=== PATIENT | male | born 1940 | race Caucasian/White ===

== ENCOUNTER 2017-04-08 13:13 | Day surgery (SDC) | payer MEDICARE, BC ==
[~2017-04-08 13:13] MED LIST: Buffered Lidocaine 0.9% SYRIN* 5 ML/SYR SYRINGE INTRADERM ONE; Famotidine IV* 10 MG/ML 2 ML (20 mg) IV ONE; Metoclopramide TAB* 10 MG PO ONE
[2017-04-08] MEDS ORDERED: Famotidine IV* 10 MG/ML 2 ML (20 mg) ONE (13:15)
[2017-04-08] MEDS ORDERED: Metoclopramide TAB* 10 MG ONE (13:15)
[2017-04-08] MEDS ORDERED: Buffered Lidocaine 0.9% SYRIN* 5 ML/SYR SYRINGE ONE (13:15)
[2017-04-08] MEDS ORDERED: Midazolam* 1 MG/ML 5 ML VIAL (5 MG) IV ONE (14:00)
[2017-04-08] MEDS ORDERED: Dexamethasone IV* 4 MG/ML 1 ML (4 MG) IV SLOW PU ONE (15:15)
[2017-04-08] MEDS ORDERED: KETAMINE HCL* 50 MG/ML 10 ML VIAL IV ONE (15:16)
[2017-04-08] MEDS ORDERED: Mivacurium Chloride* 20 MG/10 ML VIAL IV ONE (15:16)
[2017-04-08] MEDS ORDERED: Propofol* 10 MG/ML 20 ML BTL IV PUSH ONE (15:16)
[2017-04-08] MEDS ORDERED: Lidocaine 2% PF * 5 ML VIAL IV ONE (15:16)
[2017-04-08] MEDS ORDERED: fentaNYL* 50 MCG/ML 2 ML VIAL (100 MCG VIAL) IV ONE (15:16)
[2017-04-08] MEDS ORDERED: Ondansetron INJ* 2 MG/ML VIAL IV ONE (15:16)
[2017-04-08] MEDS ORDERED: Ondansetron INJ* 2 MG/ML VIAL IV PRN (16:09)
[2017-04-08] MEDS ORDERED: fentaNYL* 50 MCG/ML 2 ML VIAL (100 MCG VIAL) IV PRN (16:09)
[2017-04-08 18:14] VITALS: BP 147/81
--- NOTE | 2017-04-09 10:30 | PRO ---
BRONCHOSCOPY REPORT: DATE OF PROCEDURE: 04/08/17 PROCEDURE PERFORMED: Bronchoscopy with endobronchial ultrasound-guided fine needle aspiration of mediastinal nodes for lung cancer staging. PREPROCEDURAL DIAGNOSIS: Recently diagnosed adenocarcinoma of right lung after CT- guided biopsy. POSTPROCEDURAL DIAGNOSIS: Benign lymphatic tissue from station R4, L4, and station 7. ANESTHESIA: General anesthesia. ANESTHESIOLOGIST: Dr. Canada. DESCRIPTION OF PROCEDURE: Informed consent was obtained from the patient prior to the procedure after all the risks and benefits were thoroughly explained. The patient was placed supine on the operating room table. The patient was intubated to facilitate general anesthesia for EBUS. Appropriate time-out was agreed on by attending staff prior to the procedure. A flexible Olympus bronchoscope was inserted through ET tube for airway inspection. No endobronchial lesions were noted. All airways were patent and open. ET tube positioning was confirmed to be 2 cm above the level of roger. Bronchoscope was then withdrawn and EBUS bronchoscope was inserted through ET tube. Station L4 was minimally enlarged at 0.5 cm and was accessed through 3 passes. First pass was not adequate. Two other passes revealed lymphatic tissue, no malignant cells were noted. Station R4 was then accessed with 2 passes. Lymphatic tissue was noted on rapid onsite evaluation, no malignant cells were noted. Rest of specimen was placed in CytoLyte. The bronchoscope was then advanced into the right mainstem bronchus and station 7 was accessed with 2 passes. Pass 2 was adequate with benign lymphatic tissue. Hilar nodes were scanned; however, they were not enlarged and could not be biopsied. No other lymph nodes were enlarged in the hilar area in the left or right side. Procedure was then terminated. The patient was extubated and seen in Recovery in optimal condition. [id number]/[facility] #: [id number] [facility]
== END 2017-04-08 18:27 | disposition home or self-care (01) ==
LOC: OR 13:13
PROVIDERS: ATTEND Internal Medicine
DX: C34.91 Malignant neoplasm of unspecified part of right bronchus or lung (principal); I10 Essential (primary) hypertension; G47.33 Obstructive sleep apnea (adult) (pediatric)
CPT/HCPCS: 88172; 88173; 88177; 88305; A9270-GY; J1100; J2250; J2405; J2704; J3010

== ENCOUNTER 2017-04-27 20:56 | Emergency (ER) | payer MEDICARE, BC ==
[2017-04-27] MEDS ORDERED: NS 0.9% 1000 ML* 1,000 ML IV ONE (21:15)
[2017-04-27] MEDS ORDERED: diPHENhydraMINE IV* 50 MG/ML 1 ml VIAL (BENADRYL) ONE (21:27)
[2017-04-27] MEDS ORDERED: methylPREDNISolone 125 MG* 2 ML VIAL ONE (21:27)
[2017-04-27] MEDS ORDERED: Famotidine IV* 10 MG/ML 2 ML (20 mg) ONE (21:27)
[2017-04-27 21:38] LABS: Hematocrit 38 % (42-52); Hemoglobin 12.6 g/dl (14.0-18.0); Mean Corpuscular HGB Conc 33 g/dl (31-36); Mean Corpuscular Hemoglobin 28 pg (27-31); Mean Corpuscular Volume 85 fL (80-94); Mean Platelet Volume 8 um3 (7.4-10.4); Red Blood Count 4.51 10^6/ul (4.0-5.4); Red Cell Distribution Width 17 % (10.5-15); White Blood Count 6.7 10^3/ul (3.5-10.8)
[2017-04-27 21:53] LABS: Albumin 3.4 g/dL (3.2-5.2); BUN/Creatinine Ratio 13.1 (8-20); C Reactive Protein 75.34 mg/L (< 5.00); Calcium 8.4 mg/dL (8.6-10.3); EGFR African American 64.6 (>60); EGFR Non-African American 50.3 (>60); Globulin 2.6 g/dL (2-4); Magnesium 1.8 mg/dL (1.9-2.7); Potassium 3.7 mmol/L (3.5-5.0); Total Bilirubin 0.8 mg/dL (0.2-1.0)
[2017-04-27 21:54] LABS: Troponin I 0.01 ng/mL (<0.04)
[2017-04-27] MEDS ORDERED: Iodixanol* (CONTRAST) 320 MG/ML 100 ML SDV IV ONE (21:57)
[2017-04-27] MEDS ORDERED: LORazepam INJ* 2 MG/ML 1 ML VIAL ONE (22:02)
[2017-04-27] MEDS ORDERED: LORazepam INJ* 2 MG/ML 1 ML VIAL IV PUSH ONE (22:02)
--- NOTE | 2017-04-27 22:05 | RAD ---
Indication: Shortness of breath post RIGHT lower lung surgery. Comparison: April 03, 2017 PET/CT. March 19, 2017 chest radiograph. Technique: Upright AP 2140 hours Report: Extensive RIGHT chest wall and neck subcutaneous emphysema. Small RIGHT pleural effusion and moderate pneumothorax post partial pneumonectomy. Mild rightward shift of the mediastinum secondary to RIGHT hemithorax volume loss. Negative for cardiomegaly. Unremarkable central pulmonary vasculature and mediastinal contours accounting for portable AP technique. IMPRESSION: Small RIGHT pleural effusion and moderate pneumothorax post partial pneumonectomy. Mild rightward shift of the mediastinum secondary to RIGHT hemithorax volume loss. Extensive subcutaneous emphysema.
[2017-04-27 22:38] LABS: Urine Bacteria Absent (Absent); Urine Bilirubin Negative (Negative); Urine Glucose Negative (Negative); Urine Nitrite Negative (Negative)
[2017-04-27] MEDS ORDERED: Lidocaine 1% INJ* 10 MG/ML 30 ML SDV ONE (23:25)
[2017-04-28] MEDS ORDERED: HYDROmorphone INJ* 2 MG/ML CARPUJECT SYRINGE ONE (00:08)
[2017-04-28] MEDS ORDERED: HYDROmorphone INJ* 1 MG/ML CARPUJECT SYRINGE IV SLOW PU ONE (00:15)
--- NOTE | 2017-04-28 00:59 | ED ---
Kathi Pisano Edward, scribed for Nessa Desouza MD on 04/27/17 at 2114 . Allergic Reaction/Systemic - HPI Summary HPI Summary: 76 y/o male ANGELITO c/o sudden onset throat swelling and difficulty breathing starting at around 20:00 tonight. The symptoms are not aggravated or alleviated by anything. S/P partial lobectomy laparoscopically @ R lower lung at [place] on 04/23/17 for cancerous nodule and was released from the hospital 2 days ago. Pt was also intubated and the chest tube was pulled two days ago. Associated sx : hoarse voice. Denies CP. Pt states his voice does not sound normal. He states his throat feels closed and his breathing through his mouth is difficult. Pt states he can breathe normally through his nose. Per EMS, the pt was speaking normally on O2 in the ambulance. PMHx nodule at his R lower lung, ( adenocarcinoma), rheumatoid arthritis. New Medications - pantoprazole 40 mg oral , miralax 17 g orally 1x a day, Senna oral tablet 1 tab 2 times a day, Lovenox. Pt did not take his dose of Lovenox tonight. Pt notes that his right chest wall has been swelling, and he also notes crackling when he coughs in his right lower abd wall. 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 - , EMS, Medical Records Onset/Duration: Sudden Onset Timing: Constant Severity Initially: Moderate Severity Currently: Severe Pain Intensity: 0 Pain Scale Used: 0-10 Numeric Location: Discrete @ - throat Character: Swelling Aggravating Factor(s): Nothing Alleviating Factor(s): Nothing Associated Signs And Symptoms: Positive: Difficulty Breathing, Hoarseness, Throat Tightening, Other: - "crackling", rattling feeling in his abdominal wall after coughing - Related Hx Possible Reaction To: Other: - s/p pneumonectomy 04/23/17 - Allergies/Home Medications Allergies/Adverse Reactions: Allergies Allergy/AdvReac Type Severity Reaction Status Date / Time No Known Allergies Allergy Verified 04/08/17 13:23 PMH/Surg Hx/FS Hx/Imm Hx Previously Healthy: No Endocrine/Hematology History: Denies: Hx Diabetes Cardiovascular History: Reports: Hx Hypercholesterolemia, Hx Hypertension - CONTROL WITH MEDS, Other Cardiovascular Problems/Disorders - Dr. Solano heard a small valve leakage-not worried-age related Denies: Hx Pacemaker/ICD Respiratory History: Reports: Hx Sleep Apnea Denies: Hx Chronic Obstructive Pulmonary Disease (COPD) GI History: Reports: Other GI Disorders - TAKING OMEPRAZOLE R/T SOME PREVIOUS MEDS HE WAS ON History: Reports: Other Problems/Disorders - nocturia, ED Denies: Hx Dialysis, Hx Renal Disease Musculoskeletal History: Reports: Hx Rheumatoid Arthritis Sensory History: Reports: Hx Cataracts - HX OF Denies: Hx Contacts or Glasses, Hx Hearing Aid Opthamlomology History: Reports: Hx Cataracts - HX OF Denies: Hx Contacts or Glasses Neurological History: Reports: Other Neuro Impairments/Disorders - extreme claustrophobic Psychiatric History: Reports: Hx Anxiety - extreme claustrophobic Denies: Hx Panic Disorder - Cancer History Cancer Type, 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 ARTHROSCOPIC SURGERY BILATERAL KNEES, [facility]. POLYPS REMOVED FROM VOCAL CORDS, [facility]. 1998 SEPTOPLASTY, [facility]. 2001 CYSTOSCOPY, TURBT, [facility]. 04/23/17 right partial pneumonectomy [facility]. 2001 LEFT FOOT BUN[facility]ECTOMY, [facility]. 2007 REPAIR OF HAMMER TOE, [facility]. 2008 BILATERAL CATARACT EXTRACTION WITH IOL IMPLANTS, [place] 08/2009 RIGHT TOTAL HIP ARTHROPLASTY(ANTERIOR APPROACH, BIOMET), [place], [place] [facility]. 07/2010 RIGHT TOTAL KNEE REPLACEMENT, (SALAZAR, NEXGEN), [place], [place]. 2011 [facility] 2013 [facility]. 09/2013 BILATERAL ENDOSCOPIC CARPAL TUNNEL RELEASE AND OPEN CUBITAL TUNNEL RELEASE, [place], [place]. 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 10/2014 FLEXOR TENOTOMY, [place], [place]. 03/2015 POSTERIOR CAPSULE OPACIFICATION AND YAG LASER CAPSULOTOMY, [place] 04/2016 left total hip replacement. left knee 08/2016 in [facility] Hx Anesthesia Reactions: No Infectious Disease History: No Infectious Disease History: Denies: Traveled Outside the in Last 30 Days - Family History Known Family History: Positive: Hypertension - Social History Lives: With Family Alcohol Use: None Hx Substance Use: No Substance Use Type: Reports: None Hx Tobacco Use: No Smoking Status (MU): Never Smoked Tobacco Review of Systems Constitutional: Negative Eyes: Negative ENT: Other - hoarse voice, throat swelling Cardiovascular: Negative Respiratory: Other - difficulty breathing Gastrointestinal: Negative Genitourinary: Negative Musculoskeletal: Negative Skin: Negative Neurological: Negative Psychological: Normal All Other Systems Reviewed And Are Negative: Yes Physical Exam - Summary Physical Exam Summary: Appearance: Well-appearing, no pain distress, Well-nourished. High-pitched voice. No stridor. Skin: Warm, color reflects adequate perfusion. No hives Head: Normal Head/Face Eyes: Conjunctiva clear ENT: Pharynx clear, no uvula edema. Neck: Supple, Feels sensation that throat is closing off. No definite neck swelling. No crepitus. Trachea midline. NOTE: later in course, crepitus is palpated in ant neck Respiratory: Respirations are unlabored at 17 and his O2 sat is 100 on room air. Decreased BS on right, coarse rhonchi. No wheezes. No stridor. Cardio: RRR, No murmur, pulses normal, brisk capillary refill Abdomen: soft, nontender. Ecchymosis @ RLQ of ABD and recent surgical site at R lower lung with crepitus. No drainage from surgical site. Bowel sounds: present Musculoskeletal: Strength Intact/ ROM intact. No edema Neuro: Alert, muscle tone normal, facial symmetry, speech normal, sensory/motor intact Triage Information Reviewed: Yes Vital Signs On Initial Exam: Initial Vitals Temp Pulse Resp BP Pulse Ox 98.3 F 68 16 185/65 98 04/27/17 21:12 04/27/17 21:12 04/27/17 21:12 04/27/17 21:12 04/27/17 21:12 Vital Signs Reviewed: Yes Diagnostics - Vital Signs Vital Signs Temp Pulse Resp BP Pulse Ox 04/27/17 22:05 18 04/27/17 21:12 98.3 F 68 16 185/65 98 - Laboratory Lab Results: Lab Results 04/27/17 04/27/17 04/27/17 Range/Units 21:30 21:30 21:30 WBC 6.7 (3.5-10.8) 10^3/ul RBC 4.51 (4.0-5.4) 10^6/ul Hgb 12.6 L (14.0-18.0) g/dl Hct 38 L (42-52) % MCV 85 (80-94) fL MCH 28 (27-31) pg MCHC 33 (31-36) g/dl RDW 17 H (10.5-15) % Plt Count 143 L (150-450) 10^3/ul MPV 8 (7.4-10.4) um3 Neut % (Auto) 73.3 (38-83) % Lymph % (Auto) 17.4 L (25-47) % Bland % (Auto) 6.5 (1-9) % Eos % (Auto) 2.4 (0-6) % Baso % (Auto) 0.4 (0-2) % Absolute Neuts (auto) 4.9 (1.5-7.7) 10^3/ul Absolute Lymphs (auto) 1.2 (1.0-4.8) 10^3/ul Absolute Monos (auto) 0.4 (0-0.8) 10^3/ul Absolute Eos (auto) 0.2 (0-0.6) 10^3/ul Absolute Basos (auto) 0 (0-0.2) 10^3/ul Absolute Nucleated RBC 0 10^3/ul Nucleated RBC % 0 INR (Anticoag Therapy) 1.10 (0.89-1.11) Sodium 136 (133-145) mmol/L Potassium 3.7 (3.5-5.0) mmol/L Chloride 105 (101-111) mmol/L Carbon Dioxide 27 (22-32) mmol/L Anion Gap 4 (2-11) mmol/L BUN 18 (6-24) mg/dL Creatinine 1.37 H (0.67-1.17) mg/dL Est GFR ( Amer) 64.6 (>60) Est GFR (Non-Af Amer) 50.3 (>60) BUN/Creatinine Ratio 13.1 (8-20) Glucose 106 H (70-100) mg/dL Lactic Acid (0.5-2.0) mmol/L Calcium 8.4 L (8.6-10.3) mg/dL Magnesium 1.8 L (1.9-2.7) mg/dL Total Bilirubin 0.80 (0.2-1.0) mg/dL AST 30 (13-39) U/L ALT 25 (7-52) U/L Alkaline Phosphatase 39 (34-104) U/L Troponin I 0.01 (<0.04) ng/mL C-Reactive Protein 75.34 H (< 5.00) mg/L Total Protein 6.0 L (6.4-8.9) g/dL Albumin 3.4 (3.2-5.2) g/dL Globulin 2.6 (2-4) g/dL Albumin/Globulin Ratio 1.3 (1-3) Urine Color Urine Appearance Urine pH (5-9) Ur Specific Yarnell (1.010-1.030) Urine Protein (Negative) Urine Ketones (Negative) Urine Blood (Negative) Urine Nitrate (Negative) Urine Bilirubin (Negative) Urine Urobilinogen (Negative) Ur Leukocyte Esterase (Negative) Urine WBC (Auto) (Absent) Urine RBC (Auto) (Absent) Urine Bacteria (Absent) Urine Glucose (Negative) 04/27/17 04/27/17 Range/Units 21:30 22:26 WBC (3.5-10.8) 10^3/ul RBC (4.0-5.4) 10^6/ul Hgb (14.0-18.0) g/dl Hct (42-52) % MCV (80-94) fL MCH (27-31) pg MCHC (31-36) g/dl RDW (10.5-15) % Plt Count (150-450) 10^3/ul MPV (7.4-10.4) um3 Neut % (Auto) (38-83) % Lymph % (Auto) (25-47) % Bland % (Auto) (1-9) % Eos % (Auto) (0-6) % Baso % (Auto) (0-2) % Absolute Neuts (auto) (1.5-7.7) 10^3/ul Absolute Lymphs (auto) (1.0-4.8) 10^3/ul Absolute Monos (auto) (0-0.8) 10^3/ul Absolute Eos (auto) (0-0.6) 10^3/ul Absolute Basos (auto) (0-0.2) 10^3/ul Absolute Nucleated RBC 10^3/ul Nucleated RBC % INR (Anticoag Therapy) (0.89-1.11) Sodium (133-145) mmol/L Potassium (3.5-5.0) mmol/L Chloride (101-111) mmol/L Carbon Dioxide (22-32) mmol/L Anion Gap (2-11) mmol/L BUN (6-24) mg/dL Creatinine (0.67-1.17) mg/dL Est GFR ( Amer) (>60) Est GFR (Non-Af Amer) (>60) BUN/Creatinine Ratio (8-20) Glucose (70-100) mg/dL Lactic Acid 0.7 (0.5-2.0) mmol/L Calcium (8.6-10.3) mg/dL Magnesium (1.9-2.7) mg/dL Total Bilirubin (0.2-1.0) mg/dL AST (13-39) U/L ALT (7-52) U/L Alkaline Phosphatase (34-104) U/L Troponin I (<0.04) ng/mL C-Reactive Protein (< 5.00) mg/L Total Protein (6.4-8.9) g/dL Albumin (3.2-5.2) g/dL Globulin (2-4) g/dL Albumin/Globulin Ratio (1-3) Urine Color Straw Urine Appearance Clear Urine pH 5.0 (5-9) Ur Specific Yarnell 1.009 L (1.010-1.030) Urine Protein Negative (Negative) Urine Ketones Negative (Negative) Urine Blood Negative (Negative) Urine Nitrate Negative (Negative) Urine Bilirubin Negative (Negative) Urine Urobilinogen Negative (Negative) Ur Leukocyte Esterase Trace H (Negative) Urine WBC (Auto) 2+(11-20/hpf) H (Absent) Urine RBC (Auto) Trace(0-2/hpf) (Absent) Urine Bacteria Absent (Absent) Urine Glucose Negative (Negative) Result Diagrams: 04/27/17 21:30 04/27/17 21:30 Lab Statement: Any lab studies that have been ordered have been reviewed, and results considered in the medical decision making process. - Radiology CXR Xray Interpretation: Positive (See Comments) - Small RIGHT pleural effusion and moderate pneumothorax post partial pneumonectomy. Mild rightward shift of the mediastinum secondary to RIGHT hemithorax volume loss. Extensive subcutaneous emphysema. Radiology Interpretation Completed By: Radiologist - Additional Comments Diagnostic Additional Comments: EKG - 22: 02 - SR @ 70 BPM. NORMAL AV, IV, QTC and axis. No acute changes. No changes from prior EKG Re-Evaluation - Re-Evaluation 1 Re-Evaluation Time: 21:25 Change: Unchanged 2 Re-Evaluation Time: 21:34 Change: Unchanged Comment: Informed pt that Dr. Fam will see the pt 3 Re-Evaluation Time: 22:00 Change: Worse Comment: Pt developed crepitus at this time 4 Re-Evaluation Time: 22:23 Change: Unchanged Comment: Will discuss with surgery, Dr. Hernandez, general surgeon telephone interviewer. Fifth Eval Re-Evaluation Time: 00:35 Change: Improved Comment: chest tube placed by Dr. Hernandez without difficulty. Large gush of air, some blood, but there is no continued air leak. Allergic Reaction Course/Dx - Course Course Of Treatment: Initially pt was treated as possible anaphylaxis with Benadryl 50mg IV, Solumedrol 125mg IV, Famotidine 40mg IV. Then pt pointed out the air gurgling in his lateral abdominal wall when he coughed. Subcutaneous emphysema noted, extensively at this point, including at his neck. Pursued further eval of his airway with ENT, then consulted surgery to place chest tube prior to transfer to [place] for definitive care of the air leak post op. Assessment/Plan: 76 y/o male BIBA c/o sudden onset throat swelling and difficulty breathing earlier tonight. The symptoms are not aggravated or alleviated by anything. Sx lower R lung partial removed at [place] on 04/23/17 for cancer and was released from the hospital 2 days ago. Pt was also intubated. Associated sx: hoarse voice. Denies CP. Pt states his voice does not sound normal. He states his throat feels closed and his breathing through his mouth is difficult. Pt states he can breathe normally through his nose. Per EMS , the pt was speaking normally on O2 in the ambulance. PMHx nodule at his R lower lung, arthritis. Dr. Solano was made aware of the pt at 21:11. Spoke with Dr. Fam at 21:30. Dr. Fam will come to the ED to see the pt. In the ED, Dr. Cristel examined pt's airway and vocal cords and found no swelling, and cords move normally. CXR SHOWS Small RIGHT pleural effusion and moderate pneumothorax post partial pneumonectomy. Mild rightward shift of the mediastinum secondary to RIGHT hemithorax volume loss. Extensive subcutaneous emphysema. Dr. Fam recommends we call surgery. Discussed with Dr. Hernandez @ 22:24 who recommends we call [facility] Tried the pt's surgeon, Dr. Acosta, but could not reach him through his cell phone number. Called [place] 's main line at 22:40. EKG - 22: 02 - SR @ 70 BPM. NORMAL AV, IV, QTC and axis. No acute changes. No changes from prior EKG. Spoke with Dr. Gil of [place] at 23:17, who will call thoracic surgery and call back. Spoke with Dr. Cook, who accepts pt for transfer to [place] at 23:25. Dr. Cook wants the chest tube placed for transfer. Dr. Hernandez obtained CT chest prior to placing chest tube. Placed chest tube without difficulty. 0050: discussed CT reading with Dr. Oro, radiology, states leak is probably from bronchus but is difficult to assess. - Diagnoses Differential Diagnosis/HQI/PQRI: Positive: Airway Obstruction, Anaphylaxis, Angioedema, Bronchospasm, Other - PTX, surgical complication Provider Diagnoses: Pneumothorax on right, Subcutaneous emphysema associated with surgical procedure - Provider Notifications Discussed Care Of Patient With: Roopa Solano Time Discussed With Above Provider: 21:11 Instructed by Provider To: Transfer - Dr. Solano made aware of pt in ED; Dr. Fam ENT, Dr. Hernandez general surgery; Dr. Cook-thoracic surgeon at [place] accepts pt. Reason For Transfer: Specialty or service not available at [facility]. - Critical Care Time Critical Care Time: 30-74 min - 45 minutes Discharge - Discharge Plan Condition: Stable Disposition: TRANS HIGHER LVL OF CARE FAC The documentation as recorded by the Kathi wolfe Edward accurately reflects the service I personally performed and the decisions made by , Nessa Desouza MD.
[2017-04-28 01:00] VITALS: BP 159/72
--- NOTE | 2017-04-28 07:52 | RAD ---
HISTORY: Status post chest tube placement COMPARISONS: April 27, 2017 at 8:[address] of the chest dated April 27, 2017 VIEWS: 1: frontal portable view of the chest at 1:01 AM FINDINGS: LINES AND TUBES: A right-sided chest tube is noted. CARDIOMEDIASTINAL SILHOUETTE: There is pneumomediastinum, similar to the previous examination. PLEURA: There has been interval decrease in the size of right apical pneumothorax. There is no appreciable residual. LUNG PARENCHYMA: The lungs are clear. ABDOMEN: The upper abdomen is clear. There is no subphrenic gas. BONES AND SOFT TISSUES: There is extensive subcutaneous emphysema. IMPRESSION: 1. NO APPRECIABLE RESIDUAL PNEUMOTHORAX. 2. PNEUMOMEDIASTINUM. 3. SUBCUTANEOUS EMPHYSEMA.
--- NOTE | 2017-04-28 07:57 | RAD ---
INDICATION: Evaluate pneumothorax and subcutaneous emphysema in the patient with difficulty breathing. COMPARISON: Most recent CT of the chest is dated March 25, 2017 TECHNIQUE: Axial source images of the chest were acquired without intravenous contrast from just above the lung apices to the base of the diaphragm. Coronal and sagittal reconstructed images were acquired. FINDINGS: There is a small right-sided pneumothorax with a small pleural effusion in the dependent portion of the thorax.. There is pneumomediastinum with air insinuating and surrounding the mediastinal structures. Outside the chest wall there is subcutaneous emphysema tracking along the visualized right greater than left neck, right chest and along the right back. Relative to the prior CT examination, the patient appears to be status post right lower lobectomy. Otherwise the lungs are grossly clear. There is no gross mediastinal lymphadenopathy. Calcified atherosclerosis is seen at the coronary arteries aortic ring and arch of the aorta. Degenerative changes of the thoracic spine includes loss of intervertebral disc height. IMPRESSION: Right-sided hydropneumothorax with widespread mediastinal gas and subcutaneous emphysema overlying the visualized bilateral neck and the subcutaneous soft tissue of the right hemithorax. The patient appears to be status post right lower lobectomy relative to the 9617 CT of the chest.
--- NOTE | 2017-04-28 14:12 | CONS ---
CC: Dr. Solano; Dr. Cedillo; Dr. Lorraine Diez; [facility] * CONSULTATION AND PROCEDURE NOTE: DATE OF CONSULT: 04/27/17 HISTORY OF PRESENT ILLNESS: I was contacted by the emergency room staff to evaluate Mr. Zaragoza, a 76-year-old gentleman, who is postop day #4 from a video - assisted right lower lobectomy for adenocarcinoma. Pathology is pending. The patient was discharged from [facility] on Thursday postoperative day #2 after removal of chest tube, not sure if he underwent a chest x-ray post removal of the chest tube. He stayed the night in [place] and returned home today. The patient was doing well until he noted that his neck was swollen, presented to the emergency room with complaints of hoarseness and swollen neck. He was noted to have crepitus on the neck and a chest x-ray that showed pneumothorax. I was contacted for evaluation. I asked the ER physicians to contact the patient's surgeon. The thoracic group recommended chest tube placement and transfer to their service. They also recommended possible need for chest CT prior to placement of the chest tube. I did not have this conversation with them. This was translated to me from the emergency room physicians. The patient is complaining of right-sided chest pain and shortness of breath. No other complaints. MEDICATIONS: He has been using Lovenox 40 mg daily. REVIEW OF SYSTEMS: No fevers, no chills. Shortness of breath as described. Ecchymosis along the right flank. No dysuria. PHYSICAL EXAM: The patient is afebrile. Vital signs stable. O2 sat 98% on oxygen mask, respirations in the low 20s. Alert and oriented x3. Answers to questions appropriately. Much of the history is obtained through the ; however, no evidence of labored breathing. Trachea is midline. Neck is swollen with crepitus throughout right side more than the left. Lungs have decreased breath sounds on the right. Healing minithoracotomy-type incision on the right and chest tube removal site which also shows good healing. Wide ecchymosis along the subcutaneous area extending down to the hip on the right, minimally tender. Additional crepitus noted. Left lung field clear. Abdomen: Soft and nontender. DIAGNOSTIC STUDIES: Chest x-ray shows a pneumothorax, mostly at the apex with subcutaneous emphysema. We do not see any lateral pneumothorax on the x-ray and therefore, recommended chest CT as was considered by the thoracic surgeons. This was confirmed with noncontrast and was reviewed. Again, it shows pneumothorax apically and some in the base with fluid. It shows moderate pneumomediastinum as well and extensive emphysema. IMPRESSION AND PLAN: Hydropneumothorax status post right lower lobectomy. Differential diagnosis includes status post chest tube removal on Thursday with pneumothorax but strong concern for bronchopleural fistula or staple line leak. I agree and recommend chest tube placement. I outlined the details of the procedure with the patient and the patient's going over the risks, benefits , and alternatives. We spoke of possible complications, which included but not limited to bleeding, infection, need for additional procedures, possibility of not being able to successfully place tube. Consent was signed. PROCEDURE NOTE: In the emergency room, the patient was prepped and draped sterilely. With his right arm over his head, the 4th intercostal space was identified and injection of lidocaine along the site was performed and incision made and this was deepened down to the muscle. The subcutaneous area was released and we were able to bluntly dissect into the pleural space. A gush of air was encountered. Finger dissection was done and we could clear up the space in the pleura. This was smooth and intact, but I could only get the tip of my finger in through the extended subcutaneous space. A 28-[place] soft chest tube was then inserted and directed apically and then sutured to the skin with 0 silk sutures. It was connected to the Pleur-evac. Sterile dressing was applied. After observing this, I noted that there was no air leak into the chest tube. There was some frothy blood into the chest tube itself, but we were unable to identify air leak in the air leak window of the Pleur-evac. So, the chest tube blood appeared not to clot, but my concern was that there may be clot at the tip of the tube causing inability to have an air leak identified. This could have also represented no additional air in the cavity that the tube was in. We will get a chest x-ray postprocedure and look towards transfer to a tertiary center where the chest tube will be managed. [id number]/[facility] #: [id number] [facility]
--- NOTE | 2017-04-30 08:43 | PN ---
Progress Note - Progress Note Date of Service: 04/30/17 Note: Patient urine culture grew Enterococcus faecalis 50-75,000. Patient was transferred to [facility] so no further action needed at this time.
== END 2017-04-28 01:16 | disposition short-term general hospital (02) ==
LOC: ED 20:56
DX: J93.9 Pneumothorax, unspecified (principal); T81.82XA Emphysema (subcutaneous) resulting from a procedure, initial encounter; R06.02 Shortness of breath
CPT/HCPCS: 36415; 71010; 71250; 80053; 81003; 81015; 83605; 83735; 84484; 85025; 85610; 86140; 87077; 87086; 87186; 93005; 96374; 96375; 99285; J1170; J1200; J2001; J2060; J2930

== ENCOUNTER 2017-05-16 10:05 | Emergency (ER) | payer MEDICARE, BC ==
--- NOTE | 2017-05-16 11:12 | RAD ---
HISTORY: Shortness of breath April 27, 2017 COMPARISONS: None VIEWS: 2: Frontal and lateral views of the chest. FINDINGS: CARDIOMEDIASTINAL SILHOUETTE: The cardiomediastinal silhouette is normal. MJ: The mj are normal. PLEURA: The costophrenic angles are sharp. No pleural abnormalities are noted. LUNG PARENCHYMA: The lungs are clear. There is volume loss on the right ABDOMEN: The upper abdomen is clear. There is no subphrenic gas. BONES AND SOFT TISSUES: No bone or soft tissue abnormalities are noted. OTHER: There has been interval resolution of the right-sided chest tube and the subcutaneous emphysema. IMPRESSION: NO ACTIVE CARDIOPULMONARY DISEASE.
[2017-05-16 11:37] LABS: Hematocrit 38 % (42-52); Hemoglobin 12.1 g/dl (14.0-18.0); Mean Corpuscular HGB Conc 32 g/dl (31-36); Mean Corpuscular Hemoglobin 27 pg (27-31); Mean Corpuscular Volume 85 fL (80-94); Mean Platelet Volume 9 um3 (7.4-10.4); Red Blood Count 4.47 10^6/ul (4.0-5.4); Red Cell Distribution Width 17 % (10.5-15); White Blood Count 13.2 10^3/ul (3.5-10.8)
[2017-05-16 11:49] LABS: Albumin 3.2 g/dL (3.2-5.2); BUN/Creatinine Ratio 20.8 (8-20); C Reactive Protein 19.1 mg/L (< 5.00); Calcium 8.7 mg/dL (8.6-10.3); EGFR African American 68.7 (>60); EGFR Non-African American 53.4 (>60); Globulin 3.2 g/dL (2-4); Potassium 4.4 mmol/L (3.5-5.0); Total Bilirubin 0.6 mg/dL (0.2-1.0); Total Protein 6.4 g/dL (6.4-8.9)
[2017-05-16 14:28] LABS: Urine Bacteria Absent (Absent); Urine Bilirubin Negative (Negative); Urine Glucose Negative (Negative); Urine Nitrite Negative (Negative)
--- NOTE | 2017-05-16 14:41 | RAD ---
HISTORY: Swelling of right side of upper back COMPARISONS: CT dated April 27, 2017 TECHNIQUE: Multiple transverse and longitudinal ultrasound images were obtained using grayscale and color Doppler imaging FINDINGS: There are 2 complex fluid collections along the right lateral chest, measuring 10.6 x 10.1 x 4.5 cm in size and 6.6 x 6 x 4.5 cm in size respectively. There is no appreciable increased vascularity. IMPRESSION: COMPLEX FLUID COLLECTIONS ALONG THE RIGHT LATERAL CHEST SUGGESTIVE OF HEMATOMAS DESCRIBED ABOVE
[2017-05-16 16:59] VITALS: BP 134/89
--- NOTE | 2017-05-16 18:52 | ED ---
Kathi Pisano Edward, scribed for Oleksandr Farrar MD on 05/16/17 at 1035 . Shortness of Breath - HPI Summary HPI Summary: 76 y/o male presents to the ED c/o sudden onset SOB and lightheadedness this morning after getting out of bed. Pt states this is the first time he has experienced these symptoms s/p lobectomy on 04/23/17. Pt also c/o back pain and a region of swelling in the back on the R side. Pt denies any pain at this time. Associated sx: pale, fatigue, decreased appetite. Sx partial lobectomy laparoscopically @ [facility] lung at [facility] on 04/23/17 for cancerous nodule. Pt was released from the hospital ([facility]) on 04/25/17. Pt was seen in the ED on and was sent back to [facility] and had a pigtail and tube placed. Pt is currently on Lovenox BID. Dr. Cedillo saw the pt two days ago. Pt's doctor at [facility] was Dr. Juan Acosta. - History of Current Complaint Chief Complaint: EDShortnessOfBreath Time Seen by Provider: 05/16/17 10:18 Hx Obtained From: Patient Onset/Duration: Sudden Onset Dyspnea At: Rest Aggrevating Factors: Nothing Alleviating Factors: Nothing - Allergy/Home Medications Allergies/Adverse Reactions: Allergies Allergy/AdvReac Type Severity Reaction Status Date / Time No Known Allergies Allergy Verified 04/08/17 13:23 Home Medications: Home Medications Albuterol inh POWDER (NF) [Proair Respiclick] 180 mcg INH QID 05/16/17 [History Confirmed 05/16/17] Maxrnlh-Mbtothypz-Hsbc [Calcium & Magnesium + Zin 334-134-5 mg] 1 tab PO DAILY 05/16/17 [History Confirmed 05/16/17] Cholecalciferol [Vitamin D3] 2,000 unit PO DAILY 05/16/17 [History Confirmed ] Enoxaparin(*) [Lovenox(*)] 80 mg SUBCUT Q12HR 05/16/17 [History Confirmed ] Folic Acid 1 mg PO DAILY 05/16/17 [History Confirmed 05/16/17] Gabapentin TAB(NF) 100 mg PO BID 05/16/17 [History Confirmed 05/16/17] Hydroxychloroquine TAB* [Plaquenil TAB*] 200 mg PO BID 05/16/17 [History Confirmed 05/16/17] Lactobacillus [Probiotic] 1 cap PO DAILY 05/16/17 [History Confirmed 05/16/17] Melatonin 10 mg PO BEDTIME 05/16/17 [History Confirmed 05/16/17] Metronidazole [Flagyl 500 MG TAB] 500 mg PO TID 05/16/17 [History Confirmed ] Multiple Vitamin [Multi Vitamin] 1 tab PO DAILY 05/16/17 [History Confirmed ] Bunch-3 Fatty Acids [Fish Oil] 1,200 mg PO DAILY 05/16/17 [History Confirmed ] Pantoprazole Sodium [Protonix] 40 mg PO DAILY 05/16/17 [History Confirmed ] Simvastatin [Zocor 5 MG-] 20 mg PO BEDTIME 05/16/17 [History Confirmed 05/16/17] Vitamin E [Natural Vitamin E] 400 unit PO DAILY 05/16/17 [History Confirmed ] Zolpidem Tartrate [Ambien] 10 mg PO BEDTIME PRN MDD 1 05/16/17 [History Confirmed 05/16/17] predniSONE TAB* [Deltasone TAB*] 1 mg PO BID 05/16/17 [History Confirmed ] PMH/Surg Hx/FS Hx/Imm Hx Previously Healthy: No Endocrine/Hematology History: Denies: Hx Diabetes Cardiovascular History: Reports: Hx Hypercholesterolemia, Hx Hypertension - CONTROL WITH MEDS, Other Cardiovascular Problems/Disorders - Dr. Solano heard a small valve leakage-not worried-age related Denies: Hx Pacemaker/ICD Respiratory History: Reports: Hx Sleep Apnea Denies: Hx Chronic Obstructive Pulmonary Disease (COPD) GI History: Reports: Other GI Disorders - TAKING OMEPRAZOLE R/T SOME PREVIOUS MEDS HE WAS ON History: Reports: Other Problems/Disorders - nocturia, ED Denies: Hx Dialysis, Hx Renal Disease Musculoskeletal History: Reports: Hx Arthritis - Rheumatoid, Hx Rheumatoid Arthritis Sensory History: Reports: Hx Cataracts - HX OF Denies: Hx Contacts or Glasses, Hx Hearing Aid Opthamlomology History: Reports: Hx Cataracts - HX OF Denies: Hx Contacts or Glasses Neurological History: Reports: Other Neuro Impairments/Disorders - extreme claustrophobic Psychiatric History: Reports: Hx Anxiety - extreme claustrophobic Denies: Hx Panic Disorder - Cancer History Cancer Type, 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 [place] [facility] VOCAL CORDS[place] [facility] [facility] 2000 CYSTOSCOPY, [place], [facility]. 04/23/17 right partial pneumonectomy [facility]. 2001 LEFT FOOT [facility], [facility]. 2007 REPA[facility] OF [facility], [facility]. 2008 BILATERAL CATARACT EXTRACTION WITH IOL IMPLANTS, [place]. 08/2009 RIGHT TOTAL HIP ARTHROPLASTY(ANTERIOR APPROACH, BIOMET), [place], [place]. 2009 MOHS SURGERY ON NOSE, [facility]. 07/2010 RIGHT TOTAL KNEE REPLACEMENT, (SALAZAR, NEXGEN), [place] 2011 MOHS SURGERY ON RIGHT EAR, [place]. 2013 MOHS SURGERY LEFT SIDE OF FACE, [place]. 09/2013 BILATERAL ENDOSCOPIC CARPAL TUNNEL RELEASE AND OPEN CUBITAL TUNNEL RELEASE, [place]. 11/2013 MELANOMA REMOVED RIGHT SHOULDER, [facility]. 10/2014 FLEXOR TENOTOMY, [place], [place]. 03/2015 POSTERIOR CAPSULE OPACIFICATION AND YAG LASER CAPSULOTOMY, [place]. 04/2016 left total hip replacement. left knee 08/2016 in [facility] Hx Anesthesia Reactions: No Infectious Disease History: No Infectious Disease History: Denies: Traveled Outside the in Last 30 Days - Family History Known Family History: Positive: Hypertension - Social History Alcohol Use: None Hx Substance Use: No Substance Use Type: Reports: None Hx Tobacco Use: No Smoking Status (MU): Never Smoked Tobacco Review of Systems Positive: Fatigue, Other - decreased appetite Eyes: Negative ENT: Negative Cardiovascular: Negative Positive: Shortness Of Breath Gastrointestinal: Negative Genitourinary: Negative Musculoskeletal: Negative Skin: Other - pale Neurological: Other - lightheadedness Psychological: Normal All Other Systems Reviewed And Are Negative: Yes Physical Exam - Summary Physical Exam Summary: VITAL SIGNS: Reviewed. GENERAL: ~Patient is a well-developed and nourished male who is lying comfortable in the stretcher. ~Patient is not in any acute respiratory distress. HEAD AND FACE: No signs of trauma. ~No ecchymosis, hematomas or skull depressions. No sinus tenderness. EYES: PERRLA, EOMI x 2, No injected conjunctiva, no nystagmus. EARS: Hearing grossly intact. Ear canals and tympanic membranes are within normal limits. MOUTH: Oropharynx within normal limits. NECK: Supple, trachea is midline, no adenopathy, no JVD, no carotid bruit, no c- spine tenderness, neck with full ROM. CHEST: Symmetric, no tenderness at palpation LUNGS: Decreased breath sounds in the R lung. Normal L lung sounds. CVS: Regular rate and rhythm, S1 and S2 present, no murmurs or gallops appreciated. ABDOMEN: Soft, non-tender. No signs of distention. No rebound no guarding, and no masses palpated. Bowel sounds are normal. BACK: Swelling in R upper and middle back, around the area where he had a pigtail. EXTREMITIES: FROM in all major joints, no edema, no cyanosis or clubbing. NEURO: Alert and oriented x 3. No acute neurological deficits. Speech is normal and follows commands. SKIN: Dry and warm Triage Information Reviewed: Yes Vital Signs On Initial Exam: Initial Vitals Temp Pulse Resp BP Pulse Ox 98.2 F 90 20 137/66 100 05/16/17 10:08 05/16/17 10:08 05/16/17 10:08 05/16/17 10:08 05/16/17 10:08 Vital Signs Reviewed: Yes Diagnostics - Vital Signs Vital Signs Temp Pulse Resp BP Pulse Ox 05/16/17 10:08 98.2 F 90 20 137/66 100 - Laboratory Lab Results: Lab Results 05/16/17 05/16/17 05/16/17 Range/Units 11:05 11:05 11:05 WBC (3.5-10.8) 10^3/ul RBC (4.0-5.4) 10^6/ul Hgb (14.0-18.0) g/dl Hct (42-52) % MCV (80-94) fL MCH (27-31) pg MCHC (31-36) g/dl RDW (10.5-15) % Plt Count (150-450) 10^3/ul MPV (7.4-10.4) um3 Neut % (Auto) (38-83) % Lymph % (Auto) (25-47) % [place] % (Auto) (1-9) % Eos % (Auto) (0-6) % Baso % (Auto) (0-2) % Absolute Neuts (auto) (1.5-7.7) 10^3/ul Absolute Lymphs (auto) (1.0-4.8) 10^3/ul Absolute Monos (auto) (0-0.8) 10^3/ul Absolute Eos (auto) (0-0.6) 10^3/ul Absolute Basos (auto) (0-0.2) 10^3/ul Absolute Nucleated RBC 10^3/ul Nucleated RBC % INR (Anticoag Therapy) 1.36 H (0.89-1.11) APTT 38.5 H (26.0-36.3) seconds Sodium 134 (133-145) mmol/L Potassium 4.4 (3.5-5.0) mmol/L Chloride 103 (101-111) mmol/L Carbon Dioxide 23 (22-32) mmol/L Anion Gap 8 (2-11) mmol/L BUN 27 H (6-24) mg/dL Creatinine 1.30 H (0.67-1.17) mg/dL Est GFR ( Amer) 68.7 (>60) Est GFR (Non-Af Amer) 53.4 (>60) BUN/Creatinine Ratio 20.8 H (8-20) Glucose 153 H (70-100) mg/dL Calcium 8.7 (8.6-10.3) mg/dL Total Bilirubin 0.60 (0.2-1.0) mg/dL AST 22 (13-39) U/L ALT 32 (7-52) U/L Alkaline Phosphatase 48 (34-104) U/L CK-MB (CK-2) 2.2 (0.6-6.3) ng/mL Troponin I 0.00 (<0.04) ng/mL C-Reactive Protein 19.10 H (< 5.00) mg/L B-Natriuretic Peptide 61 ( - 100) pg/mL Total Protein 6.4 (6.4-8.9) g/dL Albumin 3.2 (3.2-5.2) g/dL Globulin 3.2 (2-4) g/dL Albumin/Globulin Ratio 1.0 (1-3) Urine Color Urine Appearance Urine pH (5-9) Ur Specific [place] (1.010-1.030) Urine Protein (Negative) Urine Ketones (Negative) Urine Blood (Negative) Urine Nitrate (Negative) Urine Bilirubin (Negative) Urine Urobilinogen (Negative) Ur Leukocyte Esterase (Negative) Urine WBC (Auto) (Absent) Urine RBC (Auto) (Absent) Urine Bacteria (Absent) Hyaline Casts (Absent) Urine Glucose (Negative) 05/16/17 05/16/17 Range/Units 11:05 14:10 WBC 13.2 H (3.5-10.8) 10^3/ul RBC 4.47 (4.0-5.4) 10^6/ul Hgb 12.1 L (14.0-18.0) g/dl Hct 38 L (42-52) % MCV 85 (80-94) fL MCH 27 (27-31) pg MCHC 32 (31-36) g/dl RDW 17 H (10.5-15) % Plt Count 327 (150-450) 10^3/ul MPV 9 (7.4-10.4) um3 Neut % (Auto) 83.8 H (38-83) % Lymph % (Auto) 7.8 L (25-47) % [place] % (Auto) 6.5 (1-9) % Eos % (Auto) 1.1 (0-6) % Baso % (Auto) 0.8 (0-2) % Absolute Neuts (auto) 11.0 H (1.5-7.7) 10^3/ul Absolute Lymphs (auto) 1.0 (1.0-4.8) 10^3/ul Absolute Monos (auto) 0.9 H (0-0.8) 10^3/ul Absolute Eos (auto) 0.1 (0-0.6) 10^3/ul Absolute Basos (auto) 0.1 (0-0.2) 10^3/ul Absolute Nucleated RBC 0 10^3/ul Nucleated RBC % 0 INR (Anticoag Therapy) (0.89-1.11) APTT (26.0-36.3) seconds Sodium (133-145) mmol/L Potassium (3.5-5.0) mmol/L Chloride (101-111) mmol/L Carbon Dioxide (22-32) mmol/L Anion Gap (2-11) mmol/L BUN (6-24) mg/dL Creatinine (0.67-1.17) mg/dL Est GFR ( Amer) (>60) Est GFR (Non-Af Amer) (>60) BUN/Creatinine Ratio (8-20) Glucose (70-100) mg/dL Calcium (8.6-10.3) mg/dL Total Bilirubin (0.2-1.0) mg/dL AST (13-39) U/L ALT (7-52) U/L Alkaline Phosphatase (34-104) U/L CK-MB (CK-2) (0.6-6.3) ng/mL Troponin I (<0.04) ng/mL C-Reactive Protein (< 5.00) mg/L B-Natriuretic Peptide ( - 100) pg/mL Total Protein (6.4-8.9) g/dL Albumin (3.2-5.2) g/dL Globulin (2-4) g/dL Albumin/Globulin Ratio (1-3) Urine Color Yellow Urine Appearance Clear Urine pH 5.0 (5-9) Ur Specific [place] 1.021 (1.010-1.030) Urine Protein 1+(30 mg/dl) H (Negative) Urine Ketones Negative (Negative) Urine Blood Negative (Negative) Urine Nitrate Negative (Negative) Urine Bilirubin Negative (Negative) Urine Urobilinogen Negative (Negative) Ur Leukocyte Esterase 1+ H (Negative) Urine WBC (Auto) Trace(0-5/hpf) (Absent) Urine RBC (Auto) Absent (Absent) Urine Bacteria Absent (Absent) Hyaline Casts Present H (Absent) Urine Glucose Negative (Negative) Result Diagrams: 05/16/17 11:05 05/16/17 11:05 Lab Statement: Any lab studies that have been ordered have been reviewed, and results considered in the medical decision making process. - Radiology CXR Xray Interpretation: No Acute Changes Radiology Interpretation Completed By: Radiologist - Ultrasound No standard instances Ultrasound Interpretation: Positive (See Comments) - CHEST US - COMPLEX FLUID COLLECTIONS ALONG THE RIGHT LATERAL CHEST SUGGESTIVE OF HEMATOMAS DESCRIBED ABOVE Ultrasound Interpretation Completed By: Radiologist - EKG 1 EKG Interpretation: 10:46 - SR @ [address] ELEVATIONS Re-Evaluation - Re-Evaluation 1 Re-Evaluation Time: 14:50 Comment: Discussed imaging and test results 2 Re-Evaluation Time: 15:33 Course/Dx - Course Assessment/Plan: 76 y/o male presents to the ED c/o sudden onset SOB and lightheadedness this morning after getting out of bed. Pt states this is the first time he has experienced these symptoms s/p lobectomy on 04/23/17. Pt also c /o back pain and a region of swelling in the back on the R side. Pt denies any pain at this time. Associated sx: pale, fatigue, decreased appetite. Sx partial lobectomy laparoscopically @ [facility] at [facility] on 04/23/17 for cancerous nodule. Pt was released from the hospital ([facility]) on 04/25/17. Pt was seen in the ED on 04/27/17 and was sent back to [facility] and had a pigtail and tube placed. Pt is currently on Lovenox BID. Dr. Cedillo saw the pt two days ago. Pt' s doctor at [facility] was Dr. Juan Acosta. EKG @ 10:46 - SR @ [address] ELEVATIONS. CXR NEGATIVE. CHEST US - COMPLEX FLUID COLLECTIONS ALONG THE RIGHT LATERAL CHEST SUGGESTIVE OF HEMATOMAS DESCRIBED ABOVE. Spoke with Dr. Vo of [facility] (surgery) @ 15:05 and again at 16:23. Dr. Vo spoke with Dr. Acosta; they recommend that we d/c the pt home with f/u at the [facility] in 2 days. They think it is just a seroma; however, if it is a hematoma we should stop Lovenox and they will reassess on Thursday. Test results show WBC 13.2, H&H 12.1/38. PTT 38.5, BUN 27, Creatinine 1.3 and CRP 19.1. UA UTI. I also discussed with Dr. Cedillo and he reports he did blood work 3 days ago and the pt had a Hem of 11.8, meaning todays is much better so the risk of bleeding into the hematoma is less. Therefore they both recommend the pt should be d/c home with f/u at the [facility] on Thursday with the previously scheduled apt. Discussed the plan with the pt and his ; they agreed. However , he was instructed that if he experiences any respiratory distress, fevers/ chills, N/V, increase in pain, or swelling becomes bigger that he should immediately return for further assessment and plan. - Diagnoses Differential Diagnosis/HQI/PQRI: Positive: Asthma, Bronchitis, CHF, Pneumonia, Pneumothorax, Pulmonary Edema Provider Diagnoses: Seroma v. hematoma Discharge - Discharge Plan Condition: Stable Disposition: HOME Patient Education Materials: Hematoma (ED) Additional Instructions: PLEASE F[facility]U AT THE [facility] ON Thursday05/18/17. STOP LOVENOX The documentation as recorded by the Kathi wolfe Edward accurately reflects the service I personally performed and the decisions made by , Oleksandr Farrar MD.
== END 2017-05-16 16:30 | disposition home or self-care (01) ==
LOC: ED 10:05
DX: R06.02 Shortness of breath (principal); L76.82 Other postprocedural complications of skin and subcutaneous tissue; Z90.2 Acquired absence of lung [part of]; R42 Dizziness and giddiness; R53.83 Other fatigue; M54.9 Dorsalgia, unspecified
CPT/HCPCS: 36415; 71020; 76604; 80053; 81003; 81015; 82553; 83880; 84484; 85025; 85610; 85730; 86140; 87086; 93005; 99284

== ENCOUNTER 2018-03-21 08:23 | Emergency (ER) | payer MEDICARE, BC ==
[2018-03-21 08:53] VITALS: BP 144/74
--- NOTE | 2018-03-21 09:05 | UC ---
Skin Complaint HPI - HPI Summary HPI Summary: pt was working in garden few days ago and started with redness around L thumb nail next day. cannot remember an injury over past 48h he has been soaking in warm water and pushing a little yellow pus out of wound. today redness seems to be spreading, also tender - History of Current Complaint Chief Complaint: UCUpperExtremity Time Seen by Provider: 03/21/18 08:32 Stated Complaint: SKIN ISSUE Hx Obtained From: Patient Onset/Duration: Gradual Onset Onset Severity: Mild Current Severity: Moderate Pain Intensity: 6 Location: Hand (Left) Character: Swelling, Redness, Painful Aggravating Factor(s): Nothing Alleviating Factor(s): Heat Associated Signs & Symptoms: Positive: Negative - Allergy/Home Medications Allergies/Adverse Reactions: Allergies Allergy/AdvReac Type Severity Reaction Status Date / Time No Known Allergies Allergy Verified 03/21/18 08:37 Home Medications: Home Medications Omeprazole 20 mg PO DAILY 03/21/18 [History Confirmed 03/21/18] Propranolol TAB* [Inderal TAB*] 40 mg PO BID 03/21/18 [History Confirmed ] sulfaSALAzine TAB* [Azulfidine TAB*] 500 mg PO BID 03/21/18 [History Confirmed 03/21/18] Review of Systems Constitutional: Negative Respiratory: Negative Cardiovascular: Negative Gastrointestinal: Negative Musculoskeletal: Negative Is Patient Immunocompromised?: Yes - rheumatoid arthritis All Other Systems Reviewed And Are Negative: Yes PMH/Surg Hx/FS Hx/Imm Hx Previously Healthy: Yes Respiratory History: Other - lung cancer Other Respiratory History: Lung CA Cancer History: Other - melanoma Other Cancer History: lung CA - Surgical History Surgical History: Yes Surgery Procedure, Year, and Place: 1975 APPENDECTOMY, [place]. ARTHROSCOPIC SURGERY BILATERAL KNEES, [facility]. POLYPS REMOVED FROM VOCAL CORDS, [facility]. 1999 SEPTOPLASTY, [facility]. 2001 CYSTOSCOPY, TURBT, [facility]. 04/23/17 right partial pneumonectomy [facility]. 2002 LEFT FOOT BUNIONECTOMY, [place]. 2008 REPAIR OF HAMMER TOE, [place]. 2009 BILATERAL CATARACT EXTRACTION WITH IOL IMPLANTS, [place] 08/2009 RIGHT TOTAL HIP ARTHROPLASTY(ANTERIOR APPROACH, BIOMET), [place], [place]. 2009 MOHS SURGERY ON [facility]. 07/2010 RIGHT TOTAL KNEE REPLACEMENT, (SALAZAR, NEXGEN), [place], [place]. 2012 MOHS SURGERY ON RIGHT EAR, [place]. 2013 MOHS SURGERY LEFT SIDE OF FACE, [place]. 09/2013 BILATERAL ENDOSCOPIC CARPAL TUNNEL RELEASE AND OPEN CUBITAL TUNNEL RELEASE, [place], [place]. 11/2013 MELANOMA REMOVED RIGHT SHOULDER, [facility]. 10/2014 FLEXOR TENOTOMY, [place], [place]. 03/2015 POSTERIOR CAPSULE OPACIFICATION AND YAG LASER CAPSULOTOMY, [place] 04/2016 left total hip replacement. left knee 08/2016 in [facility]. 12/2017 - LEFT EYE INNER CANTHUS AREA BIOPSY. Right lower lobectomy- 2016 [facility] - Family History Known Family History: Positive: Hypertension - Social History Occupation: Retired Lives: With Family Alcohol Use: None Substance Use Type: None Smoking Status (MU): Never Smoked Tobacco - Immunization History Most Recent Influenza Vaccination: 04/11/2016 Most Recent Tetanus Shot: UP TO DATE Most Recent Pneumonia Vaccination: UP TO DATE Physical Exam Triage Information Reviewed: Yes Appearance: Well-Appearing, No Pain Distress, Well-Nourished Vital Signs: Initial Vital Signs Temp 98.6 F 03/21/18 08:45 Pulse 55 03/21/18 08:45 Resp 20 03/21/18 08:45 BP 144/74 03/21/18 08:45 Pulse Ox 98 03/21/18 08:45 Vital Signs Reviewed: Yes Respiratory Exam: Normal Cardiovascular Exam: Normal Skin: Positive: Other - erythemic, swollen area surrounding L thumb nail, small opening in skin, no drainage at this time Course/Dx - Differential Diagnoses - Skin Complaint Differential Diagnoses: Abscess, Cellulitis, Foreign Body - Diagnoses Provider Diagnoses: skin abscess Discharge - Sign-Out/Discharge Documenting (check all that apply): Patient Departure All imaging exams completed and their final reports reviewed: Yes - Discharge Plan Condition: Good Disposition: HOME Prescriptions: Cephalexin CAP* [Keflex CAP*] 500 mg PO QID #28 cap Mupirocin 2% OINT* [Bactroban 2 % Oint*] 1 applic TOPICAL BID #1 tube Patient Education Materials: Abscess (ED) Referrals: Rashaun Cedillo MD [Primary Care Provider] - 2 Days (for wound recheck) Additional Instructions: soak finger in warm soapy water 3-4 times a day start Keflex antibiotic and Bactroban ointment Return if you develop a fever or worsening symptoms - Billing Disposition and Condition Condition: GOOD Disposition: Home
== END 2018-03-21 09:22 | disposition home or self-care (01) ==
LOC: UCEAST 08:23
DX: L03.012 Cellulitis of left finger (principal); Z85.820 Personal history of malignant melanoma of skin; Z85.118 Personal history of other malignant neoplasm of bronchus and lung; Z96.651 Presence of right artificial knee joint; Z96.642 Presence of left artificial hip joint
CPT/HCPCS: 99212; G0463